=== PATIENT | male | born 1970 | race Caucasian/White ===

== ENCOUNTER 2019-09-23 01:19 | Emergency (ER) | payer SELFPAY ==
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
--- NOTE | 2019-09-23 08:57 | RAD REPORT ---
EXAM DESCRIPTION: Shoulder Right 2 View - 09/23/2019 1:50 am CLINICAL HISTORY: Right shoulder and arm pain, no trauma history COMPARISON: None TECHNIQUE: Internal and external rotation views of the right shoulder were obtained. FINDINGS: There is no fracture or dislocation. AC joint is normal in appearance. No acute or suspic ious findings. IMPRESSION: Negative two-view right shoulder examination.
[2019-09-23 10:51] VITALS: BP 158/104; TEMP 98.5; O2SAT 100
== END 2019-09-23 02:12 | disposition home or self-care (01) ==
LOC: ER 01:19
DX: M25.511 Pain in right shoulder (principal)
CPT/HCPCS: 99284